=== PATIENT | male | born 1980 ===

== ENCOUNTER 2021-07-20 13:56 | Emergency (ER) | payer SELFPAY ==
--- NOTE | 2021-07-20 15:40 | XRay Report ---
LEFT SHOULDER 3 VIEWS LUMBAR SPINE 3 VIEWS SACRUM AND COCCYX 3 VIEWS INDICATION: Left shoulder, low back pain, and sacrococcygeal pain after fall. COMPARISON: No relevant prior imaging study available. FINDINGS: Left shoulder: No acute fracture or dislocation. No significant degenerative changes. Lumbar spine: No fracture is seen. Vertebral body height is maintained. There is minimal anterolisthe sis of L5 on S1 which may be due to spondylolysis. Sacrum/coccyx: SI joints are within normal limits. No sacrococcygeal fracture is seen. Pubic symphysi s is within normal limits. IMPRESSION: 1. No acute traumatic findings. 2. Minimal anterolisthesis of L5 on S1 may be due to spondylolysis at L5. Signer Name: Daron Servin MD Signed: 07/20/2021 3:35 PM Workstation Name: [id number]
[2021-07-20 15:59] VITALS: BP 123/69
[2021-07-20] MEDS ORDERED: ACETAMINOPHEN W/CODEINE 300-30 MG TAB PO ONE (20:29)
[2021-07-20] MEDS ORDERED: KETOROLAC 10 MG TAB PO ONE (20:29)
[2021-07-20] MEDS ORDERED: CYCLOBENZAPRINE 10 MG TAB PO ONE (20:29)
[2021-07-20] MEDS ORDERED: predniSONE 20 MG TAB PO ONE (20:30)
--- NOTE | 2021-07-20 20:35 | Emergency Department Report ---
ED Fall HPI - General Chief Complaint: Fall Stated Complaint: FALL/LOWER BACK/SHOULDER PAIN Time Seen by Provider: 07/20/21 20:16 Source: patient Mode of arrival: Ambulatory - History of Present Illness Initial Comments: 41 yo [place] male presents to ed for evaluation of left shoulder pain, right index finger pain, and lower back pain after falling off of a low roof. He denies LOC, abdominal pain, headache and neck pain. MD Complaint: fall -: Sudden Fall From: other (low one story roof) When Fall Occurred: 1-3 hours [employer]MER Fall Witnessed: yes, by bystander Place Fall Occurred: work Loss of Consciousness: none Symptoms Prior to Fall: none Location: back Location - Extremities: Left: Shoulder, Right: Hand Severity: severe Severity scale (0 -10): 9 Quality: aching Context: other (fall while working. ) Associated Symptoms: denies: headache, neck pain, numbness, weakness, chest paint, shortness of breath, abdominal pain, hematuria, unable to walk, lightheaded, vertigo, confusion - Related Data Previous Rx's Medication Instructions Recorded Last Taken Type Acetaminophen/Codeine [Tylenol 1 tab PO Q6H PRN #21 tab 07/20/21 Unknown Rx /Codeine # 3 tab] Cyclobenzaprine [Flexeril] 10 mg PO TID PRN #21 tab 07/20/21 Unknown Rx Ketorolac [Toradol] 10 mg PO Q6H PRN #21 tab 07/20/21 Unknown Rx Allergies Allergy/AdvReac Type Severity Reaction Status Date / Time No Known Allergies Allergy Verified 07/20/21 14:40 ED Review of Systems ROS: Stated complaint: FALL/LOWER BACK/SHOULDER PAIN Other details as noted in HPI Comment: All other systems reviewed and negative Constitutional: denies: chills, diaphoresis, fever, malaise, weakness Eyes: denies: eye pain, eye discharge, vision change ENT: denies: ear pain Respiratory: denies: cough, shortness of breath, SOB with exertion, SOB at rest, stridor, wheezing Cardiovascular: denies: chest pain, palpitations, dyspnea on exertion, edema, syncope Endocrine: no symptoms reported Gastrointestinal: denies: abdominal pain, nausea, vomiting, diarrhea, hematemesis, melena, hematochezia Genitourinary: denies: urgency, dysuria, frequency, hematuria, discharge, testicular pain Skin: denies: rash, lesions, change in color, change in hair/nails Neurological: denies: headache, weakness, numbness, paresthesias, confusion, abnormal gait, vertigo Psychiatric: denies: anxiety Hematological/Lymphatic: denies: easy bleeding, easy bruising ED Past Medical Hx - Medications Home Medications: Home Medications Medication Instructions Recorded Confirmed Last Taken Type Acetaminophen/Codeine [Tylenol 1 tab PO Q6H PRN #21 tab 07/20/21 Unknown Rx /Codeine # 3 tab] Cyclobenzaprine [Flexeril] 10 mg PO TID PRN #21 tab 07/20/21 Unknown Rx Ketorolac [Toradol] 10 mg PO Q6H PRN #21 tab 07/20/21 Unknown Rx ED Physical Exam - General Limitations: No Limitations General appearance: alert, in no apparent distress - Head Head exam: Present: atraumatic, normocephalic - Eye Eye exam: Present: normal appearance. Absent: conjunctival injection - Neck Neck exam: Present: normal inspection, full ROM. Absent: tenderness - Respiratory Respiratory exam: Present: normal lung sounds bilaterally. Absent: respiratory distress, wheezes, rales, rhonchi, chest wall tenderness, accessory muscle use - Cardiovascular Cardiovascular Exam: Present: bradycardia, normal heart sounds - GI/Abdominal GI/Abdominal exam: Present: soft, normal bowel sounds. Absent: distended, tenderness, guarding, rebound, rigid - Extremities Exam Extremities exam: Present: normal inspection, full ROM - Back Exam Back exam: Present: normal inspection, full ROM, tenderness (bilateral lower back), paraspinal tenderness. Absent: CVA tenderness (R), CVA tenderness (L), muscle spasm, vertebral tenderness, rash noted - Neurological Exam Neurological exam: Present: alert, oriented X3 - Psychiatric Psychiatric exam: Present: normal affect, normal mood - Skin Skin exam: Present: warm, dry, intact, normal color ED Course Vital Signs 07/20/21 07/20/21 14:45 15:58 Temperature 98.3 F 97.4 F L Pulse Rate 54 L 52 L Respiratory 12 18 Rate Blood Pressure 123/69 Blood Pressure 136/76 [Left] O2 Sat by Pulse 99 98 Oximetry ED Medical Decision Making - Radiology Data Radiology results: report reviewed, image reviewed Left shoulder xray: no acute fracture or dislocation. No significant degenerative changes. Lumbar spine and sacrum/coccyx: no acute traumatic findings. Minimal an terolisthesis of L5 on S1 may be due to spondylolysis at L5 - Medical Decision Making 41 yo [place] male presents to ed for evaluation of left shoulder pain, right index finger pain, and lower back pain after falling off of a low roof. He denies LOC, abdominal pain, headache and neck pain. No acute fracture or dislocation noted on xrays. Right index finger was noted to be swollen and painful, so it was placed in aluminum finger splint. No other acute findings noted on exam. Patient will be sent home on pain medications and encouraged to follow up in ed if worsening symptoms. He verbalized understanding of and agreement with plan of care. Critical care attestation.: If time is entered above; I have spent that time in minutes in the direct care of this critically ill patient, excluding procedure time. ED Disposition Clinical Impression: Finger pain, left Fall Qualifiers: Encounter type: initial encounter Qualified Code(s): W19.XXXA - Unspecified fall, initial encounter Lower back pain Qualifiers: Chronicity: acute Back pain laterality: bilateral Sciatica presence: without sciatica Qualified Code(s): M54.50 - Low back pain, unspecified Left shoulder pain Qualifiers: Chronicity: acute Qualified Code(s): M25.512 - Pain in left shoulder Disposition: 01 HOME / SELF CARE / HOMELESS Is pt being admited?: No Does the pt Need Aspirin: No Condition: Stable Instructions: Shoulder Pain, Acute Back Pain, Adult, Shoulder Pain, [id number] Additional Instructions: Take medications as prescribed. Follow-up with primary care provider or in the emergency department if worsening symptoms or no improvement. Prescriptions: Cyclobenzaprine [Flexeril] 10 mg PO TID PRN #21 tab PRN Reason: Muscle Spasm Ketorolac [Toradol] 10 mg PO Q6H PRN #21 tab PRN Reason: Pain Acetaminophen/Codeine [Tylenol /Codeine # 3 tab] 1 tab PO Q6H PRN #21 tab PRN Reason: Pain , Severe (7-10) Referrals: LISA MAYER MD [Staff Physician] - 3-5 Days Forms: Work/School Release Form(ED) Time of Disposition: 20:35
== END 2021-07-20 21:00 | disposition home or self-care (01) ==
LOC: ED 13:56
DX: M79.645 Pain in left finger(s) (principal); M54.50 Low back pain, unspecified; W19.XXXA Unspecified fall, initial encounter; Y93.89 Activity, other specified; Y92.89 Other specified places as the place of occurrence of the external cause; Y99.8 Other external cause status
CPT/HCPCS: 72100; 72220; 99283